=== PATIENT | female | born 1975 | race Caucasian/White ===

== ENCOUNTER → 2025-01-26 | Day surgery (SDC) | payer OTHER ==
[2025-01-23 09:42] LABS: BASOPHILS % 1.5 % (0.0-1.0); EOSINOPHILS % 4.7 % (0.0-6.0); LYMPHOCYTES % 35.1 % (18.0-39.1); MONOCYTES % 7.7 % (4.4-11.3); NEUTROPHILS % 50.8 % (38.7-80.0); RED CELL DISTRIBUTION WIDTH 11.7 % (11.7-14.4)
[2025-01-23 10:06] LABS: EST GLOMERULAR FILTRATION RATE 86.0 ML/MIN (>=60)
[~2025-01-26] MED LIST: ACETAMINOPHEN 1000 MG/100 ML 100 ML IV ONE; AMITRIPTYLINE H25 MG PO; BUPIVACAINE 0.25% 30ML SDV ONE; DEXAMETHASONE SOD PHOS INJ 4 MG/ML SDV ONE; FAMOTIDINE 20 MG/2 ML VIAL IV ONE; FENTANYL CITRATE/PF 100MCG/2 ML INJ ONE; LIALDA1.2 GM PO; LIDOCAINE HCL 2% LOCAL INJ 5 ML SDV VIAL INJ ONE; MIDAZOLAM HCL 2 MG/2 ML VIAL ONE; ONDANSETRON HCL INJ 2MG/ML 2ML 2 MG/ML VIAL ONE; PROPOFOL IV EMULSION 10 MG/ML 20 ML VIAL ONE; QUESTRAN PACKET4 GM PO; Z.0.BENTYL20 MG MT
[2025-01-26] MEDS: LACTATED RINGER'S 1,000 ML ONE (13:32)
[2025-01-26] MEDS: CEFAZOLIN SODIUM 2 GM ONE (13:33)
[2025-01-26] MEDS: FENTANYL CITRATE/PF 100MCG/2 ML INJ ONE (13:58)
[2025-01-26] MEDS: HYDROMORPHONE 1MG/1ML INJ ONE (14:20)
[2025-01-26 15:45] VITALS: BP 152/93; PULSE 75; RESP 16; O2SAT 100
== END | disposition home or self-care (01) ==
LOC: OR 11:18
PROVIDERS: ATTEND Orthopaedic Surgery
DX: S83.231A Complex tear of medial meniscus, current injury, right knee, initial encounter (principal); M84.453A Pathological fracture, unspecified femur, initial encounter for fracture; S83.281A Other tear of lateral meniscus, current injury, right knee, initial encounter; M22.41 Chondromalacia patellae, right knee; M65.161 Other infective (teno)synovitis, right knee; M67.51 Plica syndrome, right knee; S76.191A Other specified injury of right quadriceps muscle, fascia and tendon, initial encounter; J45.909 Unspecified asthma, uncomplicated; K58.9 Irritable bowel syndrome, unspecified; D69.6 Thrombocytopenia, unspecified; X58.XXXA Exposure to other specified factors, initial encounter; Z88.6 Allergy status to analgesic agent; Z91.040 Latex allergy status; Z01.810 Encounter for preprocedural cardiovascular examination; Z01.812 Encounter for preprocedural laboratory examination; Z01.818 Encounter for other preprocedural examination; Z79.899 Other long term (current) drug therapy
CPT/HCPCS: 27599; 29880; 36415; 71046; 80053; 81025; 85025; 93005; C1713; J0131; J1100; J1171; J1308; J2003; J2250; J2405; J2704; J3010; J7121; 76000